=== PATIENT | male | born 1990 | race Caucasian/White ===

== ENCOUNTER 2020-01-22 17:49 | Emergency (ER) | payer OTHER | END 2020-01-22 18:49 | disposition other institution (70) | LOC: ED 17:49 | DX: Z02.89 Encounter for other administrative examinations (principal) ==

== ENCOUNTER 2020-01-22 17:49 | Emergency (ER) | payer OTHER ==
[~2020-01-22] VITALS: Ht 170.2 cm; Wt 86.2 kg
[2020-01-22 17:53] VITALS: BP 123/80; Ht 170.2 cm; Wt 86.2 kg
== END 2020-01-22 18:49 | disposition other institution (70) ==
LOC: ED 17:49
DX: S21.232A Puncture wound without foreign body of left back wall of thorax without penetration into thoracic cavity, initial encounter (principal); S71.132A Puncture wound without foreign body, left thigh, initial encounter; X99.8XXA Assault by other sharp object, initial encounter; Y93.89 Activity, other specified; Y92.89 Other specified places as the place of occurrence of the external cause; Y99.8 Other external cause status
CPT/HCPCS: 90715